=== PATIENT | male | born 1990 | race Two or more races ===

== ENCOUNTER 2019-10-08 19:05 | Emergency (ER) | payer OTHER ==
[~2019-10-08] VITALS: Ht 167.6 cm; Wt 86.2 kg
== END 2019-10-08 20:47 | disposition home or self-care (01) ==
LOC: ER 19:05
DX: S00.33XA Contusion of nose, initial encounter (principal); W50.0XXA Accidental hit or strike by another person, initial encounter; Y93.67 Activity, basketball; Y92.89 Other specified places as the place of occurrence of the external cause; Y99.8 Other external cause status

== ENCOUNTER 2023-07-24 13:34 | Emergency (ER) | payer OTHER ==
[~2023-07-24] VITALS: Ht 167.6 cm; Wt 90.7 kg
[2023-07-24] MEDS ORDERED: DICLOFENAC SODI75 MG PO (14:39)
== END 2023-07-24 15:01 | disposition home or self-care (01) ==
LOC: ER 13:34
DX: H66.90 Otitis media, unspecified, unspecified ear (principal)

== ENCOUNTER 2023-12-19 15:53 | Emergency (ER) | payer OTHER ==
[~2023-12-19] VITALS: Ht 167.6 cm; Wt 90.7 kg
[~2023-12-19 15:53] MED LIST: DICLOFENAC SODI75 MG PO
== END 2023-12-19 17:46 | disposition home or self-care (01) ==
LOC: ER 15:54
DX: R53.81 Other malaise (principal); J03.90 Acute tonsillitis, unspecified

== ENCOUNTER 2024-12-22 20:29 | Emergency (ER) | payer OTHER ==
[~2024-12-22] VITALS: Ht 167.6 cm; Wt 90.7 kg
[2024-12-23 00:01] LABS: HEMATOCRIT 39.3 % (39.0-48.0); MEAN CORPUSCULAR HEMOGLOBIN 25.8 pg (27.00-32.0); MEAN CORPUSCULAR HGB CONC 33.1 g/dl (32.0-36.0); PLATELET COUNT 175 K/uL (150-450); RED BLOOD COUNT 5.03 M/uL (4.00-6.00); RED CELL DISTRIBUTION WIDTH 13.8 % (11.5-14.5)
[2024-12-23] MEDS ORDERED: OSEL75CA PO (00:51)
[2024-12-23] MEDS ORDERED: ACETAMINOPHEN500 M1 PO (00:51)
[2024-12-23] MEDS ORDERED: GILTUSS COUGH-118 M1 PO (00:51)
== END 2024-12-23 01:04 | disposition home or self-care (01) ==
LOC: ER 20:32
PROVIDERS: Preventive Medicine Public Health & General Preventive Medicine
DX: J10.1 Influenza due to other identified influenza virus with other respiratory manifestations (principal); I10 Essential (primary) hypertension; Z20.822 Contact with and (suspected) exposure to COVID-19

== ENCOUNTER → 2025-01-10 | Emergency (ER) | payer OTHER ==
[~2025-01-10] VITALS: Ht 167.6 cm; Wt 90.7 kg
[~2025-01-10] MED LIST changes: +ACETAMINOPHEN500 M1 PO; +DEXAMETHASONE SODIUM PHOSPHATE 4 MG/ML VIAL IM ONE; +DEXAMETHASONE SODIUM PHOSPHATE 4 MG/ML VIAL ONE; +GILTUSS COUGH-118 M1 PO; +IBU600 MG PO; +KETOROLAC TROMETHAMINE 30 MG VIAL ONE; +KETOROLAC TROMETHAMINE 60 MG VIAL IM ONE; +OSEL75CA PO
== END | disposition home or self-care (01) ==
LOC: ER 14:10
DX: M94.0 Chondrocostal junction syndrome [Tietze] (principal)